=== PATIENT | female | born 1960 | race Caucasian/White ===

== ENCOUNTER 2017-12-03 07:35 | Inpatient (IN) | payer MEDICARE, BC ==
[~2017-12-03] VITALS: Ht 160 cm; Wt 49.0 kg
[~2017-12-03 07:35] MED LIST: FAMO-131 PO; HYDR-3204 PO; LEVO25TA7 PO; ONDA4TAB11 PO
--- NOTE | 2017-12-03 08:20 | NUR ---
PT. ADM. TO RM. 310-1.ORIENTED TO RM. MOTHER HERE WITH PT.MOTHER IN W/C.RN ASSISTED HER TO BATHRM.
[2017-12-03] MEDS ORDERED: ACETAMINOPHEN 325 MG TABLET PO PRN (10:00)
[2017-12-03] MEDS ORDERED: ZOLPIDEM TARTRATE 5 MG TABLET PO PRN (10:00)
[2017-12-03] MEDS ORDERED: ACETYLCYSTEINE IV 0 MG in IV D5W 200 ML IV SCH (10:00)
[2017-12-03] MEDS ORDERED: MAGNESIUM HYDROXIDE 30 ML UDC PO PRN (10:00)
[2017-12-03] MEDS ORDERED: Z GUARD REMEDY 2 OZ OINT TP PRN (10:00)
[2017-12-03] MEDS ORDERED: MAG HYDROX/AL HYDROX/SIMETH 30 ML UDC PO PRN (10:00)
[2017-12-03 10:30] VITALS: BP 147/83
[2017-12-03 10:42] LABS: ABG BASE EXCESS -3.4 mmol/L; ABG OXYGEN SATURATION 96.9 % (92.0-98.5); ABG PCO2 36.5 mmHg (35.0-45.0); ABG PO2 103.5 mmHg (75.0-100.0); AaDO2 2.5 mmHg; COHb 1.5 % (0.5-1.5); MetHb 0.3 % (0.0-1.5); O2Hb 95.2 % (94.0-97.0); SITE, ABG Left Radial; VENT MODE, BG ROOM AIR
[2017-12-03 10:52] LABS: BASOPHILS # (AUTO) 0.1 /CMM (0.0-0.2); BASOPHILS % (AUTO) 1.2 % (0.0-2.0); HEMATOCRIT 38 % (33-45); HEMOGLOBIN 12.7 g/dL (11.5-14.8); LYMPHOCYTES # (AUTO) 0.9 /CMM (0.8-4.8); LYMPHOCYTES % (AUTO) 7.8 % (20.0-44.0); MEAN CORPUSCULAR HEMOGLOBIN 31 PG (26.0-33.0); MEAN CORPUSCULAR HGB CONC 33 g/dl (31.0-36.0); MEAN CORPUSCULAR VOLUME 92 fL (82-100); MONOCYTES # (AUTO) 0.5 /CMM (0.1-1.30); MONOCYTES % (AUTO) 4.1 % (2.0-12.0); NEUTROPHILS # (AUTO) 10.3 /CMM (1.8-8.9); NEUTROPHILS % (AUTO) 86.9 % (43.0-81.0); PLATELET COUNT (AUTO) 332 /CMM (150-450); RED BLOOD CELL COUNT(AUTO) 4.13 MIL/uL (4.0-5.2); RETICULOCYTE COUNT 1.3 % (0.6-2.5); WHITE BLOOD COUNT (AUTO) 11.8 K/uL (4.3-11.0)
[2017-12-03 11:00] LABS: INR 1.37 (0.87-1.13)
[2017-12-03] MEDS ORDERED: D5W IV ONE ×3 (11:00→16:00)
[2017-12-03] MEDS ORDERED: ACETYLCYSTEINE IV ONE ×3 (11:00→16:00)
[2017-12-03 11:08] LABS: ALBUMIN 3.2 g/dL (3.4-5.0); ALKALINE PHOSPHATASE 100 U/L (46-116); AMYLASE 36 U/L (25-115); BILIRUBIN,TOTAL 1.2 mg/dL (0.2-1.0); CALCIUM, SERUM 8.4 mg/dL (8.5-10.1); CARBON DIOXIDE 23 mmol/L (21-32); CHLORIDE 110 mmol/L (98-107); CREATININE 0.7 mg/dL (0.6-1.3); GLUCOSE 104 mg/dL (74-106); LIPASE 122 U/L (73-393); MAGNESIUM 1.9 mg/dL (1.8-2.4); PHOSPHORUS 1.8 mg/dL (2.5-4.9); POTASSIUM 3.2 mmol/L (3.5-5.1); SODIUM SERUM 150 mmol/L (136-145); TOTAL PROTEIN, SERUM 6.4 g/dL (6.4-8.2); UREA NITROGEN, BLOOD 18 mg/dL (7-18)
--- NOTE | 2017-12-03 11:22 | NUR ---
MUCOMYST IV STARTED AND PT. INSTRUCTED IN SAME.
[2017-12-03] MEDS: ONDANSETRON HCL/PF 4 MG/2 ML VIAL IVP PRN ×2 (12:40→18:14)
[2017-12-03 13:56] LABS: ALANINE AMINOTRANSFERASE 6865 U/L (12-78)
--- NOTE | 2017-12-03 14:00 | NUR ---
HOOKED UP TO TELE SR RATE OF 77.
[2017-12-03 14:04] LABS: ASPARTATE AMINOTRANSFERASE > 4000 U/L (15-37)
[2017-12-03 14:44] LABS: CREATINE KINASE MB 1.2 ng/mL (0-3.6); THYROID STIMULATING HORMONE 2.333 uIU/mL (0.358-3.74)
[2017-12-03] MEDS ORDERED: K PHOS NEUTRAL 250 MG TABLET PO ONE ×2 (15:30→21:30)
--- NOTE | 2017-12-03 17:00 | NUR ---
PT. REFUSING NEUTRA PHOS TABS,DUE TO NAUSEA,DR. QUEEN CALLED AND SAYS SHE WILL ORDER IV MED FOR THIS.AWARE OF PHOS. LEVEL.
[2017-12-03 17:21] VITALS: BP 152/85
--- NOTE | 2017-12-03 18:00 | NUR ---
AFTER DOCUMENTED IN ADMIT THAT PHOTOS TAKEN AND MRSA SWAB DONE PT. REFUSING.
--- NOTE | 2017-12-03 18:00 | NUR ---
PT,S MOTHER CALLING BACK TO CHECK ON HER AND STATES PT. SAYS SHE WANTS TO .RN TO ORDER SUSTAINABLE DESIGN COORDINATOR EVAL AND TO ENDORSE TO UVALDO. RN TO GET PSYCH CONSULT.
--- NOTE | 2017-12-03 19:00 | NUR ---
MEDICATED X2 FOR NAUSEA.
--- NOTE | 2017-12-03 19:30 | NUR ---
ENDORSED DEPRESSION TO UVALDO. RUTH LOCK.
--- NOTE | 2017-12-03 19:30 | NUR ---
BATTER OUT OPENING NOTES: PATIENT IN BED, AOX2, APEARS TO BE SLEEPING BUT EASILY AWAKENS TO NAME BEING CALLED. ON ROOM AIR, BREATHING EVEN AND UNLABORED. ON TELE MONITORING: SINUS RHYTHM RATE OF 80S. PIV OVER RFA G 20 INTACT AND PATENT, INFUSING WELL WITH ACETYLCYSTEINE 5000 MG IN D5W 1 L RUNNING AT 64 ML/HR. PROVIDED FOR COMFORT AND SAFETY. BED IN LOWEST AND LOCKED POSITION, SIDERAILS UP X 3. CALL LIGHT WITHIN REACH. WILL CONT TO MONITOR.
[2017-12-03 20:00] VITALS: BP 154/84
--- NOTE | 2017-12-03 21:31 | NUR ---
RN NOTES: PATIENT EARLIER REFUSED TO TAKE PO NEUTRA PHOS K. ASKED DRAKE GIL, IF ORDER CAN BE REINSTATED, SO NEW ORDER FOR PHOS REPLACEMENT PO GIVEN. HOWEVER, PATIENT REFUSED. EXPLAINED RISKS AND BENEFITS, PATIENT STILL REFUSING, SAYING "I CAN'T EAT THAT," EVEN IF OFFERED TO CRUSH IN APPLESAUCE. PATIENT THEN APPEARED UPSET AND ANXIOUS.
--- NOTE | 2017-12-03 22:06 | NUR ---
RN NOTES: PATIENT STATES "PLEASE HELP ME", AND "I AM VERY NEROUS. PLEASE GIVE ME ATIVAN". PER PATIENT, SHE TAKES ATIVAN 1 MG PO EVERY 4 HRS NEEDED FOR ANXIETY AT HOME. CALLED JEFFERY JUAN, ORDER FOR ATIVAN 1 MG PO ONE TIME DOSE GIVEN. NOTED AND CARRIED OUT.
[2017-12-03] MEDS ORDERED: LORAZEPAM 1 MG TABLET PO ONE (22:30)
[2017-12-04] VITALS: BP 135/81
[2017-12-04] MEDS ORDERED: POTASSIUM PHOSPHATE MM 15 MMOL in IV D5W 250 ML IV SCH ×2
--- NOTE | 2017-12-04 00:35 | NUR ---
RN NOTES: NEW ORDER FOR K PHOSPHATE IV ENTERED BY DR QUEEN. MEDICATION ORDER FORWARDED TO NURSING MICA SPREADER, WHO INFORMED THAT MEDICATION MUST BE MIXED BY PHARMACIST. PHARMACIST BIG DATA PLATFORM ARCHITECT ALSO CALLED TO VERIFY MEDICATION. PER PHARMACIST, MEDICATION IS NOT COMPATIBLE WITH CURRENT IVF, AND THAT IT HAS TO BE INFUSED OVER CENTRAL LINE.
--- NOTE | 2017-12-04 01:13 | NUR ---
RN NOTES: DR QUEEN INFORMED RE K PHOS IV NEEDING CENTRAL LINE RECOMMENDED BY PHARMACIST OFFICE RN. PER DR QUEEN, ORDER FOR MIDLINE INSERTION FOR AM. SUPERVISOR WOOL SHEARING, DHEERAJ, MADE AWARE.
--- NOTE | 2017-12-04 06:55 | NUR ---
INSPECTOR MECHANICAL CLOSING NOTES: PATIENT IN BED, AOX2, ON ROOM AIR, BREATHING EVEN AND UNLABORED. APPEARS CALM AND IN NO DISTRESS, BUT REMAINED UNCOOPERATIVE THROUGH SHIFT. ON TELE MONITORING: SINUS RHYTHM AT RATE OF 80S. PIV OVER RFA G 20 INTACT AND INFUSING WITH IVF OF ACETYLCYSTEINE 5000 MG IN D5W 1 L RUNNING AT 60 ML/HR. PROVIDED FOR COMFORT AND SAFETY. BED IN LOWEST AND LOCKED POSITION, SIDERAILS UP X 3. NO ACUTE CHANGE IN CONDITION NOTED THROUGH NIGHT. WILL ENDORSE TO AM RN FOR ERIK.
[2017-12-04] MEDS: LEVOTHYROXINE SODIUM 75 MCG TABLET PO SCH (07:30)
[2017-12-04 07:50] LABS: BASOPHILS # (AUTO) 0.1 /CMM (0.0-0.2); BASOPHILS % (AUTO) 0.9 % (0.0-2.0); EOSINOPHILS % (AUTO) 0.3 % (0.0-6.0); HEMATOCRIT 37 % (33-45); HEMOGLOBIN 12.3 g/dL (11.5-14.8); LYMPHOCYTES # (AUTO) 1.6 /CMM (0.8-4.8); LYMPHOCYTES % (AUTO) 21.5 % (20.0-44.0); MEAN CORPUSCULAR HEMOGLOBIN 31 PG (26.0-33.0); MEAN CORPUSCULAR HGB CONC 34 g/dl (31.0-36.0); MEAN CORPUSCULAR VOLUME 93 fL (82-100); MONOCYTES # (AUTO) 0.5 /CMM (0.1-1.30); MONOCYTES % (AUTO) 6.2 % (2.0-12.0); NEUTROPHILS # (AUTO) 5.4 /CMM (1.8-8.9); NEUTROPHILS % (AUTO) 71.1 % (43.0-81.0); PLATELET COUNT (AUTO) 267 /CMM (150-450); RDW COEFFICIENT OF VARIATION 14.4 (11.5-15.0); RED BLOOD CELL COUNT(AUTO) 3.95 MIL/uL (4.0-5.2); WHITE BLOOD COUNT (AUTO) 7.6 K/uL (4.3-11.0)
[2017-12-04 08:00] VITALS: BP 119/56
[2017-12-04 08:00] LABS: INR 1.15 (0.87-1.13)
[2017-12-04 08:09] LABS: CALCIUM, SERUM 8.4 mg/dL (8.5-10.1); CREATININE 0.5 mg/dL (0.6-1.3); MAGNESIUM 1.7 mg/dL (1.8-2.4); PHOSPHORUS 1.2 mg/dL (2.5-4.9)
--- NOTE | 2017-12-04 08:30 | NUR ---
dr. bolaños in checking pt. status and labs.
[2017-12-04 08:33] LABS: POTASSIUM 2.5 mmol/L (3.5-5.1)
[2017-12-04] MEDS: POTASSIUM PHOSPHATE MM 7.5 MMOL in IV D5W 100 ML IV SCH ×2 (09:14→13:42)
[2017-12-04] MEDS: ONDANSETRON HCL/PF 4 MG/2 ML VIAL IVP PRN ×2 (09:40→16:18)
[2017-12-04 09:47] LABS: ALKALINE PHOSPHATASE 89 U/L (46-116); BILIRUBIN,DIRECT 0.5 mg/dL (0.0-0.2); BILIRUBIN,TOTAL 1.5 mg/dL (0.2-1.0); TOTAL PROTEIN, SERUM 6.1 g/dL (6.4-8.2)
[2017-12-04 09:50] LABS: SALICYLATE < 0.2 mg/dL (2.8-20.0)
[2017-12-04 09:51] LABS: ACETAMINOPHEN 0 ug/ml (10-30); ASPARTATE AMINOTRANSFERASE 1504 U/L (15-37)
[2017-12-04] MEDS: GABAPENTIN 100 MG CAPSULE PO SCH ×3 (10:30→17:47)
[2017-12-04] MEDS ORDERED: LORAZEPAM 1 MG TABLET PO PRN (10:30)
[2017-12-04 11:10] LABS: ALANINE AMINOTRANSFERASE 4031 U/L (12-78)
[2017-12-04] MEDS: Magnesium 1GM/D5W 100ML PREMIX 100 ML IV SCH ×2 (12:29→13:35)
--- NOTE | 2017-12-04 12:30 | NUR ---
2nd iv line started lt. wrist for multiple replacements.#22 angio.
[2017-12-04] MEDS: HYDROCODONE/APAP 5/325MG 1 EACH TABLET PO PRN ×2 (13:09→16:59)
[2017-12-04 16:00] VITALS: BP 118/75
[2017-12-04] MEDS: POTASSIUM CL. PREMIX PERIPHER. 50 ML IV SCH ×4 (16:06→18:44)
--- NOTE | 2017-12-04 18:30 | NUR ---
potassium,mg replacement as well as phosphorous replacement.pt. med. x1 for nausea as well as pain.refusing most of oral meds and food. mother in most of day visiting.dr. encarnacion in as well for psych consult.
--- NOTE | 2017-12-04 19:30 | NUR ---
RN NOTES RECEIVED PATIENT IN BED ASLEEP, EASILY AROUSABLE. AO X 3, ABLE TO MAKE NEEDS KNOWN; FLAT AFFECT. NO ACUTE DISTRESS NOTED. NO SIGNS OF PAIN NOTED. IV SITES PATENT, INTACT; FLUSHED. SAFETY REMINDERS GIVEN. ON LOW BED WITH BILATERAL UPPER SIDE RAILS UP. CALL HURST WITHIN EASY REACH. WILL CONTINUE TO MONITOR.
[2017-12-04 20:00] VITALS: BP 123/75
[2017-12-04] MEDS ORDERED: QUETIAPINE FUMARATE 25 MG TABLET PO SCH (22:00)
--- NOTE | 2017-12-04 22:35 | NUR ---
RUTH NOTES DR. HERNDON MADE AWARE THAT PATIENT HAS WHEEZING ON EXPIRATION. NEW ORDER RECEIVED FOR ATROVENT NEB 1 UNIT DOSE Q 8 HOURS PRN, ALBUTEROL NEB 1 UNIT DOSE Q 8 HOURS PRN, LASIX 20 MG IV PUSH X 1 NOW; NOTED AND CARRIED OUT. Addendum: 12/05/17 at 0622 by JOSEP BARBOSA RN WRONG PATIENT.
--- NOTE | 2017-12-05 06:23 | NUR ---
RN NOTES PATIENT ASLEEP, EASILY AROUSABLE. RESPIRATIONS EVEN. NO SIGNS OF PAIN NOTED. DUE MED GIVEN WITH NO ASE NOTED. NEEDS ATTENDED. SAFETY PRECAUTIONS AND COMFORT MEASURES IN PLACE. WILL GIVE REPORT TO DAY SHIFT FOR CONTINUITY OF CARE.
[2017-12-05] MEDS: ONDANSETRON HCL/PF 4 MG/2 ML VIAL IVP PRN ×3 (06:52→21:41)
[2017-12-05 06:58] LABS: CALCIUM, SERUM 8.5 mg/dL (8.5-10.1); CREATININE 0.4 mg/dL (0.6-1.3); MAGNESIUM 2.5 mg/dL (1.8-2.4); POTASSIUM 3.1 mmol/L (3.5-5.1)
[2017-12-05] MEDS: HYDROCODONE/APAP 5/325MG 1 EACH TABLET PO PRN ×3 (06:58→21:35)
[2017-12-05 07:01] LABS: EOSINOPHILS # (AUTO) 0.1 /CMM (0.0-0.7); EOSINOPHILS % (AUTO) 0.9 % (0.0-6.0); HEMATOCRIT 36 % (33-45); LYMPHOCYTES # (AUTO) 2.4 /CMM (0.8-4.8); LYMPHOCYTES % (AUTO) 38.5 % (20.0-44.0); MEAN CORPUSCULAR HEMOGLOBIN 31 PG (26.0-33.0); MEAN CORPUSCULAR HGB CONC 34 g/dl (31.0-36.0); MEAN CORPUSCULAR VOLUME 93 fL (82-100); MONOCYTES # (AUTO) 0.5 /CMM (0.1-1.30); MONOCYTES % (AUTO) 7.8 % (2.0-12.0); NEUTROPHILS # (AUTO) 3.3 /CMM (1.8-8.9); NEUTROPHILS % (AUTO) 52.8 % (43.0-81.0); PLATELET COUNT (AUTO) 260 /CMM (150-450); RDW COEFFICIENT OF VARIATION 14.8 (11.5-15.0); RED BLOOD CELL COUNT(AUTO) 3.84 MIL/uL (4.0-5.2); WHITE BLOOD COUNT (AUTO) 6.3 K/uL (4.3-11.0)
--- NOTE | 2017-12-05 07:41 | NUR ---
MS/RN OPENING NOTE PATIENT IN BED IN STABLE CONDITION. A/O X4. NO SIGNS OF ACUTE DISTRESS. NO COMPLAIN OF PAIN OR DISCOMFORT. ALL NEEDS ATTENDED TO. CALL LIGHT WITHIN REACH. WILL CONTINUE TO MONITOR TO ENSURE SAFETY.
[2017-12-05 08:00] VITALS: BP 107/66
[2017-12-05] MEDS: LEVOTHYROXINE SODIUM 75 MCG TABLET PO SCH (08:06)
[2017-12-05] MEDS: GABAPENTIN 100 MG CAPSULE PO SCH ×3 (08:06→16:47)
--- NOTE | 2017-12-05 10:23 | NUR ---
MS/RN SEEN BY DR QUEEN PATIENT SEEN BY DR QUEEN WITH NO ORDERS AT THIS TIME.
[2017-12-05] MEDS ORDERED: POTASSIUM CHLORIDE 20 MEQ TAB.PRT.SR PO ONE (10:30)
[2017-12-05 10:58] LABS: BILIRUBIN,DIRECT 0.5 mg/dL (0.0-0.2); BILIRUBIN,TOTAL 1.6 mg/dL (0.2-1.0)
[2017-12-05 16:07] VITALS: BP 99/59
[2017-12-05] MEDS: DULOXETINE HCL 30 MG CAPSULE.DR PO SCH (16:48)
--- NOTE | 2017-12-05 18:08 | NUR ---
MS/RN CLOSING NOTE PATIENT IN BED IN STABLE CONDITION. A/O X 3. NO SIGNS OF ACUTE DISTRESS. NO COMPLAIN OF PAIN OR DISCOMFORT. ALL NEEDS ATTENDED TO. CALL LIGHT WITHIN REACH. WILL ENDORSE TO NEXT SHIFT FOR CONTINUITY OF CARE.
--- NOTE | 2017-12-05 19:05 | NUR ---
RN NOTES RECEIVED PATIENT IN BED AWAKE, VERBALLY RESPONSIVE, A/O X 4. ABLE TO MAKE NEEDS KNOWN. NO ACUTE DISTRESS NOR SOB NOTED. NO S/S OF PAIN OR DISCOMFORT AT THIS TIME NO C/O N/V . IV SITES PATENT, INTACT; FLUSHED. SAFETY REMINDERS/ PRECAUTIONS OBSERVED AND GIVEN. BED ON LOWEST LEVEL, WITH BILATERAL UPPER SIDE RAILS UP. CALL LIGHT WITHIN EASY REACH. WILL CONTINUE TO MONITOR.
[2017-12-05 20:00] VITALS: BP 122/76
[2017-12-05] MEDS ORDERED: QUETIAPINE FUMARATE 25 MG TABLET PO SCH (22:00)
[2017-12-06 00:04] VITALS: BP 121/68
[2017-12-06] MEDS: LEVOTHYROXINE SODIUM 75 MCG TABLET PO SCH (06:34)
[2017-12-06] MEDS: ONDANSETRON HCL/PF 4 MG/2 ML VIAL IVP PRN ×3 (06:34→17:57)
--- NOTE | 2017-12-06 06:47 | NUR ---
RN NOTES PATIENT IN BED AWAKE, VERBALLY RESPONSIVE, A/O X 4. ABLE TO MAKE NEEDS KNOWN. NO ACUTE DISTRESS NOR SOB NOTED. NO S/S OF PAIN OR DISCOMFORT AT THIS TIME NO C/O N/V . IV SITES PATENT, INTACT; FLUSHED. SAFETY REMINDERS/ PRECAUTIONS OBSERVED AND GIVEN. BED ON LOWEST LEVEL, WITH BILATERAL UPPER SIDE RAILS UP. CALL LIGHT WITHIN EASY REACH. WILL ENDORSE TO NEXT SHIFT FOR ERIK. .
[2017-12-06 06:50] LABS: BASOPHILS % (AUTO) 0.2 % (0.0-2.0); EOSINOPHILS # (AUTO) 0.1 /CMM (0.0-0.7); EOSINOPHILS % (AUTO) 1.3 % (0.0-6.0); HEMATOCRIT 36 % (33-45); HEMOGLOBIN 12.2 g/dL (11.5-14.8); LYMPHOCYTES # (AUTO) 2.4 /CMM (0.8-4.8); MEAN CORPUSCULAR HEMOGLOBIN 31 PG (26.0-33.0); MEAN CORPUSCULAR HGB CONC 34 g/dl (31.0-36.0); MEAN CORPUSCULAR VOLUME 93 fL (82-100); MONOCYTES # (AUTO) 0.4 /CMM (0.1-1.30); NEUTROPHILS # (AUTO) 3.4 /CMM (1.8-8.9); NEUTROPHILS % (AUTO) 53.5 % (43.0-81.0); PLATELET COUNT (AUTO) 264 /CMM (150-450); WHITE BLOOD COUNT (AUTO) 6.3 K/uL (4.3-11.0)
[2017-12-06 06:58] LABS: BILIRUBIN,DIRECT 0.3 mg/dL (0.0-0.2); BILIRUBIN,TOTAL 1.1 mg/dL (0.2-1.0); CREATININE 0.4 mg/dL (0.6-1.3); MAGNESIUM 2.1 mg/dL (1.8-2.4); PHOSPHORUS 3.5 mg/dL (2.5-4.9); POTASSIUM 3.8 mmol/L (3.5-5.1); TOTAL PROTEIN, SERUM 6.2 g/dL (6.4-8.2)
--- NOTE | 2017-12-06 07:35 | NUR ---
MS/RN OPENING NOTE PATIENT IN BED IN STABLE CONDITION. A/O X 3. NO SIGNS OF ACUTE DISTRESS. NO COMPLAIN OF PAIN OR DISCOMFORT. ALL NEEDS ATTENDED TO. CALL LIGHT WITHIN REACH. WILL CONTINUE TO MONITOR TO ENSURE SAFETY.
[2017-12-06 08:00] VITALS: BP 126/73
[2017-12-06] MEDS: GABAPENTIN 100 MG CAPSULE PO SCH ×3 (08:17→17:49)
[2017-12-06] MEDS: HYDROCODONE/APAP 5/325MG 1 EACH TABLET PO PRN ×2 (12:18→20:03)
[2017-12-06 16:00] VITALS: BP 104/64
[2017-12-06] MEDS: DULOXETINE HCL 30 MG CAPSULE.DR PO SCH (17:48)
--- NOTE | 2017-12-06 18:42 | NUR ---
MS/RN SEEN BY DR BECK PATIENT SEEN BY DR BECK AND PER DR BECK SHE WILL MAKE ADJUSTMENT TO HER MEDICATION AND ALSO TO ENDORSE FOR TOMORROW MORNING TO BE FOLLOWED UP BY PSYCHIATRIST NUTRITIONAL CHEMIST ON GEROPSYCH. PATIENT STILL NOT A CANDIDATE FOR SAFE DISCHARGE AT HOME SECONDARY TO NOT ABLE TO TAKE CARE OF HER AND REFUSING PT.
--- NOTE | 2017-12-06 19:30 | NUR ---
MS RN OPENING NOTES: PATIENT IN BED, AOX4, ON ROOM AIR, BREATHING EVEN AND UNLABORED. APPEARS CALM, BUT DOES COMPLAIN OF HEADACHE AND PAIN OVER ABDOMEN AND LOWER LEGS, AND IS ASKING FOR PAIN MEDICAITON. PIV OVER RFA G 20 AND LEFT WRIST G22 INTACT AND PATENT TO FLUSH. PROVIDED FOR COMFORT AND SAFETY. BED IN LOWEST AND LOCKED POSITION, SIDERAILS UP X 3. CALL LIGHT WITHIN REACH. WILL CONT TO MONITOR.
[2017-12-06 20:00] VITALS: BP 129/71
--- NOTE | 2017-12-06 20:03 | NUR ---
RN NOTES: PATIENT C/O 7/10 PAIN (HEADACHE, BLE AND ABDOMEN). ADMINISTERED NORCO 5-325 MG PO. WILL CONT TO MONITOR.
[2017-12-06] MEDS: QUETIAPINE FUMARATE 25 MG TABLET PO SCH (21:20)
--- NOTE | 2017-12-07 06:49 | NUR ---
MS RN CLOSING NOTES: PATIENT IN BED, AOX4, ON ROOM AIR, BREATHING EVEN AND UNLABORED. APPEARS CALM AND IN NO DISTRESS. DUE MEDS GIVEN. PROVIDED FOR COMFORT AND SAFETY. BED IN LOWEST AND LOCKED POSITION, SIDERAILS UP X 3. CALL LIGHT WITHIN REACH. WILL ENDORSE TO AM RN FOR ERIK.
[2017-12-07 08:00] VITALS: BP 120/69
[2017-12-07 08:03] LABS: BASOPHILS % (AUTO) 0.3 % (0.0-2.0); EOSINOPHILS # (AUTO) 0.1 /CMM (0.0-0.7); EOSINOPHILS % (AUTO) 1.6 % (0.0-6.0); HEMATOCRIT 36 % (33-45); HEMOGLOBIN 11.9 g/dL (11.5-14.8); LYMPHOCYTES % (AUTO) 22.6 % (20.0-44.0); MEAN CORPUSCULAR HEMOGLOBIN 31 PG (26.0-33.0); MEAN CORPUSCULAR HGB CONC 34 g/dl (31.0-36.0); MEAN CORPUSCULAR VOLUME 93 fL (82-100); MONOCYTES # (AUTO) 0.6 /CMM (0.1-1.30); MONOCYTES % (AUTO) 7.2 % (2.0-12.0); NEUTROPHILS # (AUTO) 5.9 /CMM (1.8-8.9); NEUTROPHILS % (AUTO) 68.3 % (43.0-81.0); PLATELET COUNT (AUTO) 286 /CMM (150-450); RDW COEFFICIENT OF VARIATION 14.4 (11.5-15.0); WHITE BLOOD COUNT (AUTO) 8.7 K/uL (4.3-11.0)
[2017-12-07 08:12] LABS: BILIRUBIN,DIRECT 0.3 mg/dL (0.0-0.2); BILIRUBIN,TOTAL 0.9 mg/dL (0.2-1.0); CALCIUM, SERUM 9.2 mg/dL (8.5-10.1); CREATININE 0.4 mg/dL (0.6-1.3); MAGNESIUM 1.9 mg/dL (1.8-2.4); PHOSPHORUS 3.8 mg/dL (2.5-4.9); POTASSIUM 4.1 mmol/L (3.5-5.1); TOTAL PROTEIN, SERUM 6.3 g/dL (6.4-8.2)
[2017-12-07] MEDS: GABAPENTIN 100 MG CAPSULE PO SCH ×3 (08:45→18:24)
[2017-12-07] MEDS: LEVOTHYROXINE SODIUM 75 MCG TABLET PO SCH (08:48)
[2017-12-07] MEDS: HYDROCODONE/APAP 5/325MG 1 EACH TABLET PO PRN ×3 (08:48→20:42)
--- NOTE | 2017-12-07 09:30 | NUR ---
RN CALLING CODY-PSYCH TO INFORM RETAIL BANKING MANAGER THAT BUDGET DIRECTOR PSYCH TO FOLLOW PT. IN DR. BECK,S ABSENCE.RN SPOKE WITH DR. CAMARGO DIRECTLY.
[2017-12-07] MEDS: ONDANSETRON HCL/PF 4 MG/2 ML VIAL IVP PRN ×2 (14:04→20:43)
--- NOTE | 2017-12-07 14:30 | NUR ---
PT,S MOTHER IN TO VISIT.
[2017-12-07 16:00] VITALS: BP 112/69
--- NOTE | 2017-12-07 17:37 | NUR ---
MEDICATED X 2 FOR ABD. PAIN AND X 1 FOR NAUSEA.PT. IS MED COMPLIANT,STILL EATING SMALL AMTS.
--- NOTE | 2017-12-07 18:55 | NUR ---
URINE SENT FOR UA AND CULTURE.
[2017-12-07 20:00] VITALS: BP 110/69
[2017-12-07] MEDS: QUETIAPINE FUMARATE 25 MG TABLET PO SCH (20:40)
[2017-12-07 21:07] LABS: APPEARANCE,URINE CLEAR (CLEAR); BILIRUBIN,URINE NEGATIVE (NEGATIVE); BLOOD, URINE TRACE-INTA Ery/uL (NEGATIVE); COLOR,URINE YELLOW (YELLOW); KETONES,URINE NEGATIVE (NEGATIVE); LEUKOCYTE ESTERASE ,URINE NEGATIVE (NEGATIVE); NITRITE, URINE NEGATIVE (NEGATIVE); PROTEIN,URINE NEGATIVE (NEGATIVE); UGLUCOSE NEGATIVE (NEGATIVE)
[2017-12-07 21:15] LABS: BACTERIA,URINE None seen /HPF (None Seen); RBC,URINE 0-2 /HPF (0-2); SQUAMOUS EPITHELIAL CELL,UR None Seen /HPF (None Seen); WBC,URINE NONE SEEN /HPF (0-3)
[2017-12-08] MEDS: HYDROCODONE/APAP 5/325MG 1 EACH TABLET PO PRN ×3 (04:48→14:30)
[2017-12-08] MEDS: ONDANSETRON HCL/PF 4 MG/2 ML VIAL IVP PRN ×2 (04:49→12:27)
[2017-12-08 06:43] LABS: ALBUMIN 3.2 g/dL (3.4-5.0); BILIRUBIN,DIRECT 0.2 mg/dL (0.0-0.2); BILIRUBIN,TOTAL 0.8 mg/dL (0.2-1.0); CALCIUM, SERUM 9.5 mg/dL (8.5-10.1); CREATININE 0.5 mg/dL (0.6-1.3); PHOSPHORUS 3.9 mg/dL (2.5-4.9); POTASSIUM 4.3 mmol/L (3.5-5.1); TOTAL PROTEIN, SERUM 6.7 g/dL (6.4-8.2)
[2017-12-08 08:00] VITALS: BP 125/78
[2017-12-08] MEDS: GABAPENTIN 100 MG CAPSULE PO SCH ×2 (10:33→13:00)
[2017-12-08] MEDS: LEVOTHYROXINE SODIUM 75 MCG TABLET PO SCH (10:33)
--- NOTE | 2017-12-08 10:35 | NUR ---
Noted patient sitting up in chair. No acute cardiopulmonary distress noted. Patient has refused morning medication several attempts to offer medication x 3.
[2017-12-08] MEDS ORDERED: GABA100C PO (10:45)
[2017-12-08] MEDS ORDERED: QUET25TA PO (10:45)
--- NOTE | 2017-12-08 13:10 | NUR ---
patient in bed. none complaint with plan of care. Refused 1300 medication. Stating her stomach is discomforted and would like to have norco instead. Patient teaching and reinforcement on compliance of treatment. Call light with in reach. Patient refused medication x 3.
== END 2017-12-08 16:03 | disposition home or self-care (01) | DRG 918 ==
LOC: MED 08:28 → TELE 16:50 → MED 12-04 09:28
PROVIDERS: ADMIT Internal Medicine; ATTEND Internal Medicine
DX: T39.1X1A Poisoning by 4-Aminophenol derivatives, accidental (unintentional), initial encounter (principal); D68.9 Coagulation defect, unspecified; E87.8 Other disorders of electrolyte and fluid balance, not elsewhere classified; F31.9 Bipolar disorder, unspecified; E44.1 Mild protein-calorie malnutrition; Z68.1 Body mass index [BMI] 19.9 or less, adult; E03.9 Hypothyroidism, unspecified; F41.9 Anxiety disorder, unspecified; Y92.009 Unspecified place in unspecified non-institutional (private) residence as the place of occurrence of the external cause; G89.4 Chronic pain syndrome; F32.9 Major depressive disorder, single episode, unspecified; R74.0 Nonspecific elevation of levels of transaminase and lactic acid dehydrogenase [LDH]; N28.89 Other specified disorders of kidney and ureter; Z90.49 Acquired absence of other specified parts of digestive tract
CPT/HCPCS: 36415; 36600; 76700-TC; 80048-TC; 80053-TC; 80076-TC; 81000-TC; 82150-TC; 82247-TC; 82248-TC; 82553-TC; 82803-TC; 83690-TC; 83735-TC; 84100-TC; 84443-TC; 85025-TC; 85045-TC; 85610-TC; 85652-TC; 85730-TC; 87081-TC; 87086-TC; A4606; G0480; J0132; J2405; J3475; J3480; J3490; J7040; J7060; J7070; Z7610

== ENCOUNTER 2020-02-14 23:47 | Emergency (ER) | payer OTHER, BC ==
[~2020-02-14] VITALS: Ht 160 cm; Wt 55.8 kg
[~2020-02-14 23:47] MED LIST changes: +GABA100C PO; +QUET25TA PO
[2020-02-14 23:56] VITALS: BP 113/75
[2020-02-15] MEDS ORDERED: HYDROCODONE/APAP 7.5/325MG 1 EACH TABLET PO ONE
[2020-02-15] MEDS ORDERED: HYDROCODONE/APAP 10/325MG 1 EA TABLET ONE (00:04)
--- NOTE | 2020-02-15 00:14 | NUR ---
Patient discharged to home in stable condition. Rx and Written and verbal after care instructions given. Patient verbalizes understanding of instruction.
[2020-02-15] MEDS ORDERED: HYDROCODONE/APAP 10/325MG 1 EA TABLET PO ONE (00:30)
== END 2020-02-15 00:16 | disposition home or self-care (01) ==
LOC: ER 23:48
DX: S33.5XXA Sprain of ligaments of lumbar spine, initial encounter (principal); F11.20 Opioid dependence, uncomplicated; G89.4 Chronic pain syndrome; Z90.710 Acquired absence of both cervix and uterus; Z98.890 Other specified postprocedural states; Z90.49 Acquired absence of other specified parts of digestive tract; Z88.2 Allergy status to sulfonamides; Z88.0 Allergy status to penicillin; Z79.899 Other long term (current) drug therapy; Z98.84 Bariatric surgery status; W10.8XXA Fall (on) (from) other stairs and steps, initial encounter; Y93.89 Activity, other specified; Y92.89 Other specified places as the place of occurrence of the external cause; Y99.8 Other external cause status

== ENCOUNTER 2020-03-04 23:55 | Emergency (ER) | payer OTHER, BC ==
[~2020-03-04] VITALS: Ht 160 cm; Wt 55.8 kg
[2020-03-05] MEDS ORDERED: HYDROCODONE/APAP 10/325MG 1 EA TABLET ONE (00:32)
[2020-03-05] MEDS: HYDROCODONE/APAP 10/325MG 1 EA TABLET PO ONE (00:37)
[2020-03-05 01:04] VITALS: BP 128/74
== END 2020-03-05 01:04 | disposition home or self-care (01) ==
LOC: ER 23:58
DX: G89.29 Other chronic pain (principal); Z76.5 Malingerer [conscious simulation]; Z90.49 Acquired absence of other specified parts of digestive tract; Z98.890 Other specified postprocedural states; Z90.710 Acquired absence of both cervix and uterus; Z88.2 Allergy status to sulfonamides; Z79.899 Other long term (current) drug therapy

== ENCOUNTER 2020-07-06 00:53 | Emergency (ER) | payer OTHER, BC ==
[~2020-07-06] VITALS: Ht 160 cm; Wt 55.8 kg
[2020-07-06 00:56] VITALS: BP 124/71
--- NOTE | 2020-07-06 00:58 | NUR ---
PT aaox4. bibs for c/o R shoulder, elbow and hip pain s/p trip and fall yesterday. No acute distress noted. upon assessment pt able to move all ext. VSS.
[2020-07-06] MEDS ORDERED: HYDROCODONE/APAP 5/325MG TABLET ONE (01:13)
[2020-07-06] MEDS ORDERED: HYDROCODONE/APAP 5/325MG TABLET PO ONE (01:30)
== END 2020-07-06 01:20 | disposition home or self-care (01) ==
LOC: ER 00:57
DX: G89.29 Other chronic pain (principal); M25.511 Pain in right shoulder; M25.521 Pain in right elbow; M25.551 Pain in right hip; Z90.49 Acquired absence of other specified parts of digestive tract; Z90.710 Acquired absence of both cervix and uterus; Z98.890 Other specified postprocedural states; Z88.2 Allergy status to sulfonamides; Z88.0 Allergy status to penicillin; Z79.899 Other long term (current) drug therapy

== ENCOUNTER 2020-08-03 07:55 | Emergency (ER) | payer MEDICARE, BC ==
[~2020-08-03] VITALS: Ht 160 cm; Wt 55.8 kg
--- NOTE | 2020-08-03 08:10 | NUR ---
PT came to er via uber with c/o back pack pain s/p. pt states she tripped and fell and hit her head, back and hips. pt c/o 07/30 back pain. awaiting for MD marie.
--- NOTE | 2020-08-03 08:30 | NUR ---
SEEN AND EVALUATED BY MD. AWAITING FOR ORDERS
[2020-08-03 08:58] VITALS: BP 148/75
== END 2020-08-03 08:58 | disposition home or self-care (01) ==
LOC: ER 08:10
DX: G89.29 Other chronic pain (principal); M54.5 Low back pain; Z76.5 Malingerer [conscious simulation]; Z90.49 Acquired absence of other specified parts of digestive tract; Z98.890 Other specified postprocedural states; Z88.2 Allergy status to sulfonamides; Z88.0 Allergy status to penicillin; Z79.899 Other long term (current) drug therapy

== ENCOUNTER 2020-10-24 18:01 | Emergency (ER) | payer MEDICARE, BC ==
[~2020-10-24] VITALS: Ht 160 cm; Wt 55.8 kg
[~2020-10-24 18:01] MED LIST changes: -HYDR-3204 PO; +HYDR-4275 PO
[2020-10-24 18:18] VITALS: BP 113/85
[2020-10-24] MEDS ORDERED: HYDROCODONE/APAP 5/325MG TABLET ONE (18:53)
[2020-10-24] MEDS ORDERED: HYDROCODONE/APAP 5/325MG TABLET PO ONE (19:00)
== END 2020-10-24 20:00 | disposition home or self-care (01) ==
LOC: ER 18:03
DX: M25.512 Pain in left shoulder (principal); M25.522 Pain in left elbow; G89.4 Chronic pain syndrome; Z90.49 Acquired absence of other specified parts of digestive tract; Z98.890 Other specified postprocedural states; Z88.2 Allergy status to sulfonamides; Z88.0 Allergy status to penicillin; Z79.899 Other long term (current) drug therapy; W01.0XXA Fall on same level from slipping, tripping and stumbling without subsequent striking against object, initial encounter; Y93.89 Activity, other specified; Y92.098 Other place in other non-institutional residence as the place of occurrence of the external cause; Y99.8 Other external cause status
CPT/HCPCS: 73030-TC; 73080-TC

== ENCOUNTER 2020-11-27 02:22 | Emergency (ER) | payer MEDICARE, BC ==
[~2020-11-27] VITALS: Ht 160 cm; Wt 57.6 kg
[2020-11-27] MEDS ORDERED: SUMATRIPTAN SUCCINATE 6 MG/0.5 ML VIAL SQ ONE ×2 (03:00→03:31)
[2020-11-27] MEDS ORDERED: METOCLOPRAMIDE HCL 10 MG/2 ML VIAL IV ONE (03:00)
[2020-11-27] MEDS ORDERED: diphenhydrAMINE HCL 50 MG/ML VIAL IV ONE (03:00)
[2020-11-27] MEDS ORDERED: IV NS 0.9% 1,000 ML BAG IV ONE (03:00)
--- NOTE | 2020-11-27 03:08 | NUR ---
PATIENT CAME TO THE ER BED 2 C/O HEADACHE FOR THE PAST 2 DAYS THAT HAS BEEN ON AND OFF. PATIENT STATES THAT THE PAIN IS "EVERYWHERE IN MY HEAD"; DENIES "WORST HEADACHE OF MY LIFE". PATIENT IS AAOX4. NO SOB .BREATHING EVENLY AND UNLABORED ON ROOM AIR. WILL CONTINUE TO MONITOR PATIENT.
[2020-11-27] MEDS ORDERED: METOCLOPRAMIDE HCL 10 MG/2 ML VIAL ONE (03:31)
[2020-11-27] MEDS ORDERED: diphenhydrAMINE HCL 50 MG/ML VIAL ONE (03:31)
--- NOTE | 2020-11-27 04:33 | NUR ---
PATIENT IS ASKING FOR MORPHINE. MD NOTIFIED.
--- NOTE | 2020-11-27 04:37 | NUR ---
MD GIVEN VERBAL ORDER FOR MORPHINE 2MG IV. WILL CARRY OUT ORDER.
[2020-11-27] MEDS ORDERED: MORPHINE SULFATE INJ 2 MG/ML DISP.SYRIN ONE (04:38)
[2020-11-27] MEDS ORDERED: SUMA100T16 PO (04:39)
[2020-11-27] MEDS ORDERED: ACET-73 PO (04:39)
--- NOTE | 2020-11-27 04:39 | NUR ---
PATIENT MEDICATED ORDERED
--- NOTE | 2020-11-27 04:58 | NUR ---
PATIENT CALLED AN UBER.
--- NOTE | 2020-11-27 04:58 | NUR ---
IV removed. Catheter intact and site benign. Pressure and 4x4 applied to site. No bleeding noted.
--- NOTE | 2020-11-27 04:58 | NUR ---
Patient discharged to home in stable condition. Written and verbal after care instructions given. Patient verbalizes understanding of instruction.
--- NOTE | 2020-11-27 04:58 | NUR ---
PATIENT IS AMBULATORY WITH A STEADY GAIT.
[2020-11-27 04:59] VITALS: BP 122/71
[2020-11-27] MEDS ORDERED: MORPHINE SULFATE INJ 2 MG/ML DISP.SYRIN IV ONE (05:00)
== END 2020-11-27 05:00 | disposition home or self-care (01) ==
LOC: ER 02:25
DX: R51.9 Headache, unspecified (principal); G89.4 Chronic pain syndrome; F11.20 Opioid dependence, uncomplicated; Z98.890 Other specified postprocedural states; Z90.49 Acquired absence of other specified parts of digestive tract; Z88.2 Allergy status to sulfonamides; Z88.0 Allergy status to penicillin; Z79.899 Other long term (current) drug therapy
CPT/HCPCS: 96361; 96372; 96374; 96375; 99284; J1200; J2270; J2765; J3030; J7030

== ENCOUNTER 2021-10-11 02:02 | Emergency (ER) | payer MEDICARE, BC ==
[~2021-10-11] VITALS: Ht 160 cm; Wt 60.3 kg
[~2021-10-11 02:02] MED LIST changes: +ACET-73 PO; +SUMA100T16 PO
[2021-10-11] MEDS ORDERED: HYDROCODONE/APAP 5/325MG TABLET PO ONE (02:30)
[2021-10-11] MEDS ORDERED: CYCLOBENZAPRINE 10 MG TABLET PO ONE (02:30)
[2021-10-11] MEDS ORDERED: LIDO30AD10 TP (02:35)
[2021-10-11] MEDS ORDERED: CYCL10TA9 PO (02:35)
[2021-10-11] MEDS ORDERED: HYDROCODONE/APAP 5/325MG TABLET ONE (02:42)
[2021-10-11] MEDS ORDERED: CYCLOBENZAPRINE 10 MG TABLET ONE (02:42)
[2021-10-11] MEDS ORDERED: LIDOCAINE 5% (PATCH) 1 EA PATCH TP ONE (02:50)
[2021-10-11] MEDS: LIDOCAINE 5% (PATCH) 1 EA PATCH TP SCH ×2 (02:56→02:58)
--- NOTE | 2021-10-11 03:05 | NUR ---
Patient discharged to home in stable condition. Written and verbal after care instructions given. Patient verbalizes understanding of instruction.
[2021-10-11 03:06] VITALS: BP 132/88
== END 2021-10-11 03:06 | disposition home or self-care (01) ==
LOC: ER 02:05
DX: M25.512 Pain in left shoulder (principal); M25.511 Pain in right shoulder; Z88.0 Allergy status to penicillin; Z88.2 Allergy status to sulfonamides; Z79.899 Other long term (current) drug therapy; X50.0XXA Overexertion from strenuous movement or load, initial encounter; Y93.89 Activity, other specified; Y92.89 Other specified places as the place of occurrence of the external cause; Y99.8 Other external cause status

== ENCOUNTER 2021-10-24 20:28 | Emergency (ER) | payer MEDICARE, BC ==
[~2021-10-24] VITALS: Ht 160 cm; Wt 60.3 kg
[~2021-10-24 20:28] MED LIST changes: +CYCL10TA9 PO; +LIDO30AD10 TP
--- NOTE | 2021-10-24 21:32 | NUR ---
PT BIBS FOR C/O LOWER BACK AND L ANKLE PAIN S/P FALL FROM STAIRS. PT A/OX4. TOLERATING R/A WELL WITH NO SOB. SAFETY MEASURES IN PLACE
--- NOTE | 2021-10-24 22:01 | NUR ---
MEDICAL ASSISTANT OB GYN AT PT'S BEDSIDE
--- NOTE | 2021-10-24 22:13 | NUR ---
PT TAKEN TO CT VIA [facility]
--- NOTE | 2021-10-24 22:17 | NUR ---
PT RETURNED TO ER BED [address]
[2021-10-24] MEDS ORDERED: HYDROCODONE/APAP 5/325MG TABLET ONE (22:51)
[2021-10-24] MEDS: HYDROCODONE/APAP 5/325MG TABLET PO ONE (22:55)
[2021-10-24] MEDS ORDERED: LIDO30AD10 TP (23:11)
[2021-10-24] MEDS ORDERED: CYCL5TAB PO (23:11)
[2021-10-24] MEDS ORDERED: METH4TAB17 PO (23:11)
--- NOTE | 2021-10-24 23:32 | NUR ---
Patient discharged to home in stable condition. Written and verbal after care instructions given. Patient verbalizes understanding of instruction.
[2021-10-25 01:07] VITALS: BP 141/96
== END 2021-10-24 23:32 | disposition home or self-care (01) ==
LOC: ER 20:30
DX: S93.402A Sprain of unspecified ligament of left ankle, initial encounter (principal); M54.41 Lumbago with sciatica, right side; M54.2 Cervicalgia; G89.4 Chronic pain syndrome; I10 Essential (primary) hypertension; R00.0 Tachycardia, unspecified; K46.9 Unspecified abdominal hernia without obstruction or gangrene; Z60.2 Problems related to living alone; Z90.49 Acquired absence of other specified parts of digestive tract; Z98.84 Bariatric surgery status; Z90.710 Acquired absence of both cervix and uterus; Z88.0 Allergy status to penicillin; Z88.2 Allergy status to sulfonamides; Z79.1 Long term (current) use of non-steroidal anti-inflammatories (NSAID); Z79.891 Long term (current) use of opiate analgesic; Z79.818 Long term (current) use of other agents affecting estrogen receptors and estrogen levels; Z79.84 Long term (current) use of oral hypoglycemic drugs; W10.9XXA Fall (on) (from) unspecified stairs and steps, initial encounter; Y93.89 Activity, other specified; Y92.89 Other specified places as the place of occurrence of the external cause; Y99.8 Other external cause status
CPT/HCPCS: 72131-TC; 73610-TC